=== PATIENT | male | born 1965 | race African-American/Black ===

== ENCOUNTER 2019-10-25 | Emergency (ER) | payer OTHER ==
[2019-10-25] MEDS ORDERED: LIPITOR10 M1 PO (17:44)
[2019-10-25] MEDS ORDERED: CITALOPRAM40 M1 PO (17:45)
[2019-10-25] MEDS ORDERED: IBUPROFEN600 MG PO (17:45)
--- NOTE | 2019-10-28 10:56 | NUR ---
Notified nurse (Roxane Stewart) at [facility] ([phone]) of Covid results (Negative). Faxed to [facility] secure fax [phone].
== END 2019-10-25 19:30 | disposition home or self-care (01) | DRG 605 ==
PROC: 0HQFXZZ Repair Right Hand Skin, External Approach (ICD-10-PCS; principal; 2019-10-25)
DX: S61.210A Laceration without foreign body of right index finger without damage to nail, initial encounter (principal); X50.0XXA Overexertion from strenuous movement or load, initial encounter; Y93.67 Activity, basketball; Y92.149 Unspecified place in prison as the place of occurrence of the external cause; Z11.59 Encounter for screening for other viral diseases